=== PATIENT | male | born 1960 | race Two or more races ===

== ENCOUNTER 2022-04-18 13:15 | Emergency (ER) | payer MEDICAID, OTHER ==
[~2022-04-18] VITALS: Ht 175.3 cm; Wt 81.8 kg
[2022-04-18] MEDS ORDERED: TETANUS-DIPTH-ACEL PERTUSSIS 0.5ML SYR Tdap IM ONE (19:15)
[2022-04-18] MEDS ORDERED: LIDOCAINE 1% HCL (LOCAL ANESTH.) INJ 20ML MDV IJ ONE (19:15)
[2022-04-18] MEDS ORDERED: ACET650T12 PO (20:14)
[2022-04-18] MEDS ORDERED: ONDANSETRON ODT 4 MG TAB PO ONE (20:15)
[2022-04-18] MEDS ORDERED: HYDROcodone-ACET 5/325MG TAB PO ONE (20:15)
[2022-04-18 20:36] VITALS: BP 159/91
== END 2022-04-18 20:36 | disposition home or self-care (01) ==
LOC: EDBD 13:15 → ER 13:15
DX: S01.81XA Laceration without foreign body of other part of head, initial encounter (principal); S01.01XA Laceration without foreign body of scalp, initial encounter; I10 Essential (primary) hypertension; I25.2 Old myocardial infarction; W26.0XXA Contact with knife, initial encounter; Y93.89 Activity, other specified; Y92.89 Other specified places as the place of occurrence of the external cause; Y99.8 Other external cause status
CPT/HCPCS: 12004; 12015; 90471; 90715; 99283; J2001; Q0162